=== PATIENT | male | born 1950 | race Caucasian/White ===

== ENCOUNTER 2022-02-19 21:39 | Emergency (ER) | payer MEDICARE ==
[~2022-02-19] VITALS: Ht 177.8 cm; Wt 77.1 kg
--- NOTE | 2022-02-19 21:47 | NUR ---
TO ER BED 9. [id number] FROM [facility] C/O GLF OUT OF BED WITH LEFT HIP/HEAD PAIN. REDNESS NOTED ON L FOREHEAD, SKIN IN TACT. PT STATES HE FEELS DISCOMFORT. DENIES ANY CHEST PAIN OR SOB. AWAITING MD HUYNH
--- NOTE | 2022-02-19 21:58 | NUR ---
PT TAKEN FOR CT
--- NOTE | 2022-02-19 23:29 | NUR ---
PT RESTING COMFORTABLY IN BED, SITTER FROM [facility] AT BEDSIDE
[2022-02-19] MEDS ORDERED: TDAP [DIPH/PERTUSSIS/TET] 0.5 ML VIAL IM ONE (23:56)
[2022-02-20] MEDS ORDERED: TDAP [DIPH/PERTUSSIS/TET] 0.5 ML VIAL IM ONE
--- NOTE | 2022-02-20 00:08 | NUR ---
PT WILL BE TRANSPORTED BACK TO HIS FACILITY IN 25 TOT Addendum: 02/20/22 at 0009 by TAVARES PT WILL BE TRANSPORTED BACK TO FACILITY IN 25 TO 30 MINS VIA [facility].
--- NOTE | 2022-02-20 00:23 | NUR ---
[facility] 305 AT BEDSIDE FOR PT TRANSPORT TO [facility]
[2022-02-20 00:34] VITALS: BP 138/77
== END 2022-02-20 00:34 | disposition home or self-care (01) ==
LOC: ER 21:43
DX: S00.81XA Abrasion of other part of head, initial encounter (principal); W06.XXXA Fall from bed, initial encounter; Y93.89 Activity, other specified; Y92.89 Other specified places as the place of occurrence of the external cause; Y99.8 Other external cause status
CPT/HCPCS: 70450-TC; 72125-TC; 72170-TC; 90715